=== PATIENT | male | born 1940 | race Caucasian/White ===

== ENCOUNTER 2019-06-09 17:36 | Inpatient (IN) ==
[2019-06-09 18:28] LABS: Bilirubin,Urine Negative (Negative); Blood,Urine Large (Negative); Clarity,Urine Cloudy (Clear); Color,Urine Red (Yellow); Glucose,Urine (UA) 100 mg/dL (Normal); Ketones,Urine Negative (Negative); Leukocyte Esterase,Urine Moderate (Negative); Nitrite,Urine Negative (Negative); Protein,Urine >=300 mg/dL (Neg-Trace); Specific Gravity,Urine 1.019 (1.010-1.025); Urobilinogen,Urine Normal (Normal)
[2019-06-09] MEDS ORDERED: *HR* HYDROmorphone (PF) 1 MG/ML SYRINGE IVP STA (18:31)
[2019-06-09] MEDS ORDERED: Ondansetron 4 MG/2 ML VIAL IVP STA (18:31)
[2019-06-09] MEDS ORDERED: 0.9 % Sodium Chloride 1,000 ML IVC ONE (18:31)
[2019-06-09 20:06] LABS: Basophils % 0.2 %; Eosinophils # 0.3 K/mcL (0.0-0.6); Eosinophils % 2.8 %; Hematocrit 43.9 % (37.5-50.1); Hemoglobin 14.2 g/dL (12.9-16.9); Immature Granulocytes % 0.5 % (0-4); Lymphocytes # 1.1 K/mcL (0.6-4.6); Lymphocytes % 11.7 %; Mean Corpuscular HGB Conc 32.3 g/dL (31.6-35.5); Mean Corpuscular Hemoglobin 28.9 pg (28.0-33.3); Mean Corpuscular Volume 89.2 fL (83.0-100.0); Mean Platelet Volume 11.1 fL (9.4-12.4); Monocytes # 0.9 K/mcL (0.0-1.3); Monocytes % 9.6 %; Platelet Count 172 K/mcL (140-400); Red Blood Count 4.92 M/mcL (4.19-5.50); Red Cell Distribution Width 14.6 % (11.5-14.5); Segmented Neutrophils % 75.2 %; White Blood Count 9.3 K/mcL (4.3-11.1)
[2019-06-09 20:29] LABS: BUN/Creatinine Ratio 12 (6-26); Blood Urea Nitrogen 17 mg/dL (8-23); Calcium 8.7 mg/dL (8.6-10.3); Carbon Dioxide 26 mEq/L (23-29); Chloride 105 mEq/L (98-107); Glucose 115 mg/dL (70-105); Osmolality,Calculated 294 (280-300); Potassium 4.1 mEq/L (3.5-5.1); Sodium 141 mEq/L (136-145); eGFR For African Americans > 60 (> 60); eGFR For Non-African Americans 50 (> 60)
[2019-06-10] MEDS ORDERED: *HR* HYDROmorphone (PF) 1 MG/ML SYRINGE IVP ONE (02:44)
[2019-06-10] MEDS ORDERED: Naloxone 0.4 MG/ML INJ IVP PRN (03:09)
[2019-06-10] MEDS ORDERED: *HR* FentaNYL (PF) 100 MCG/2 ML VIAL IVP PRN (03:14)
[2019-06-10] MEDS ORDERED: 0.9 % Sodium Chloride 1,000 ML IVC SCH (04:00)
[2019-06-10 05:23] LABS: Hematocrit 44.7 % (37.5-50.1); Hemoglobin 14.7 g/dL (12.9-16.9)
[2019-06-10] MEDS: cefTRIAXone 1,000 MG in Water for inj. (sterile) 10 ML IVP SCH (05:47)
[2019-06-10] MEDS: DilTIAZem CD (24hr) 240 MG CAP.ER.24H PO SCH (08:39)
[2019-06-10] MEDS: Finasteride 5 MG TABLET PO SCH (10:33)
[2019-06-10] MEDS: Hyoscyamine SL 0.125 MG TAB.SUBL SL PRN ×2 (10:33→18:11)
[2019-06-11] MEDS ORDERED: *HR* Promethazine 25 MG/ML VIAL IV ONE (01:28)
[2019-06-11] MEDS: Hyoscyamine SL 0.125 MG TAB.SUBL SL PRN ×3 (01:35→21:23)
[2019-06-11] MEDS ORDERED: 0.9 % Sodium Chloride 1,000 ML ONE (01:40)
[2019-06-11] MEDS ORDERED: 0.9 % Sodium Chloride 3,000 ML ONE ×2 (03:33→03:59)
[2019-06-11 06:14] LABS: Basophils % 0.2 %; Eosinophils # 0.2 K/mcL (0.0-0.6); Eosinophils % 1.5 %; Hematocrit 38.6 % (37.5-50.1); Immature Granulocytes % 0.5 % (0-4); Lymphocytes # 1.2 K/mcL (0.6-4.6); Lymphocytes % 11.2 %; Mean Corpuscular HGB Conc 32.4 g/dL (31.6-35.5); Mean Corpuscular Hemoglobin 29.1 pg (28.0-33.3); Mean Platelet Volume 11.5 fL (9.4-12.4); Monocytes # 1.1 K/mcL (0.0-1.3); Platelet Count 178 K/mcL (140-400); Red Blood Count 4.29 M/mcL (4.19-5.50); Red Cell Distribution Width 14.6 % (11.5-14.5); Segmented Neutrophils % 76.6 %; White Blood Count 10.5 K/mcL (4.3-11.1)
[2019-06-11 06:16] LABS: Hemoglobin 12.5 g/dL (12.9-16.9)
[2019-06-11 06:33] LABS: Calcium 8.9 mg/dL (8.6-10.3); Potassium 4.3 mEq/L (3.5-5.1)
[2019-06-11] MEDS ORDERED: 0.9 % Sodium Chloride 4,000 ML ONE (07:18)
[2019-06-11] MEDS: DilTIAZem CD (24hr) 240 MG CAP.ER.24H PO SCH (07:21)
[2019-06-11] MEDS: Finasteride 5 MG TABLET PO SCH (07:21)
[2019-06-11] MEDS: cefTRIAXone 1,000 MG in Water for inj. (sterile) 10 ML IVP SCH (07:22)
[2019-06-11] MEDS: *HR* Labetalol 20 MG/4 ML SYRINGE IVP PRN ×2 (07:25→12:43)
[2019-06-11] MEDS ORDERED: Dextrose Gel 15 GM/37.5 ML TUBE PO PRN ×2 (07:53)
[2019-06-11] MEDS ORDERED: D5% in Water 1,000 ML IVC PRN (07:53)
[2019-06-11] MEDS ORDERED: *HR* Dextrose 50 % in Water (Syg) 50 ML SYRINGE IVP PRN (07:53)
[2019-06-11] MEDS: *HR* Belladonna Alkaloids/Opium 30 MG RECTAL SUPPOSITORY RC PRN (12:44)
[2019-06-11] MEDS: Insulin LISPRO 300 UNITS/3 ML VIAL SQ SCH ×2 (12:56→16:49)
[2019-06-11] MEDS: *HR* Amiodarone 200 MG TABLET PO SCH (16:49)
[2019-06-11] MEDS: traZODone 50 MG TABLET PO SCH (23:24)
[2019-06-12 05:05] LABS: Basophils % 0.2 %; Eosinophils # 0.2 K/mcL (0.0-0.6); Eosinophils % 2.4 %; Hematocrit 32.9 % (37.5-50.1); Hemoglobin 11.2 g/dL (12.9-16.9); Immature Granulocytes % 0.6 % (0-4); Lymphocytes # 1.1 K/mcL (0.6-4.6); Lymphocytes % 11.6 %; Mean Corpuscular Hemoglobin 29.3 pg (28.0-33.3); Mean Corpuscular Volume 86.1 fL (83.0-100.0); Mean Platelet Volume 11.6 fL (9.4-12.4); Monocytes # 1.2 K/mcL (0.0-1.3); Monocytes % 12.2 %; Platelet Count 145 K/mcL (140-400); Red Blood Count 3.82 M/mcL (4.19-5.50); Red Cell Distribution Width 14.9 % (11.5-14.5); White Blood Count 9.7 K/mcL (4.3-11.1)
[2019-06-12 05:24] LABS: Calcium 8.6 mg/dL (8.6-10.3); Potassium 4.1 mEq/L (3.5-5.1)
[2019-06-12] MEDS: Insulin LISPRO 300 UNITS/3 ML VIAL SQ SCH ×3 (09:23→18:16)
[2019-06-12] MEDS: cefTRIAXone 1,000 MG in Water for inj. (sterile) 10 ML IVP SCH (09:23)
[2019-06-12] MEDS: *HR* Amiodarone 200 MG TABLET PO SCH (09:23)
[2019-06-12] MEDS: Finasteride 5 MG TABLET PO SCH (09:23)
[2019-06-12] MEDS: *HR* Belladonna Alkaloids/Opium 30 MG RECTAL SUPPOSITORY RC PRN (09:24)
[2019-06-12] MEDS: DilTIAZem CD (24hr) 240 MG CAP.ER.24H PO SCH (09:24)
[2019-06-12] MEDS: FLUoxetine HCl 10 MG CAPSULE PO SCH (13:55)
[2019-06-12] MEDS: Aspirin 81 MG TAB.CHEW PO SCH (13:55)
[2019-06-12] MEDS: traZODone 50 MG TABLET PO SCH (22:28)
[2019-06-13 02:01] LABS: Basophils % 0.3 %; Eosinophils # 0.4 K/mcL (0.0-0.6); Eosinophils % 3.4 %; Hematocrit 32.4 % (37.5-50.1); Hemoglobin 10.4 g/dL (12.9-16.9); Immature Granulocytes % 0.6 % (0-4); Lymphocytes # 1.4 K/mcL (0.6-4.6); Lymphocytes % 11.9 %; Mean Corpuscular HGB Conc 32.1 g/dL (31.6-35.5); Mean Corpuscular Hemoglobin 28.7 pg (28.0-33.3); Mean Corpuscular Volume 89.3 fL (83.0-100.0); Mean Platelet Volume 11.4 fL (9.4-12.4); Monocytes # 1.4 K/mcL (0.0-1.3); Monocytes % 11.6 %; Neutrophils # 8.4 K/mcL (1.6-8.9); Platelet Count 166 K/mcL (140-400); Red Blood Count 3.63 M/mcL (4.19-5.50); Red Cell Distribution Width 14.6 % (11.5-14.5); Segmented Neutrophils % 72.2 %; White Blood Count 11.6 K/mcL (4.3-11.1)
[2019-06-13 02:21] LABS: Calcium 8.7 mg/dL (8.6-10.3); Potassium 4.2 mEq/L (3.5-5.1)
[2019-06-13 07:47] VITALS: BP 129/74
[2019-06-13] MEDS: Aspirin 81 MG TAB.CHEW PO SCH (08:20)
[2019-06-13] MEDS: *HR* Amiodarone 200 MG TABLET PO SCH (08:21)
[2019-06-13] MEDS: FLUoxetine HCl 10 MG CAPSULE PO SCH (08:21)
[2019-06-13] MEDS: DilTIAZem CD (24hr) 240 MG CAP.ER.24H PO SCH (08:21)
[2019-06-13] MEDS: Finasteride 5 MG TABLET PO SCH (08:21)
[2019-06-13] MEDS: Insulin LISPRO 300 UNITS/3 ML VIAL SQ SCH (08:34)
== END 2019-06-13 11:50 | disposition home or self-care (01) | DRG 696 ==
LOC: EMEROOARM 17:36 → 3BNU 17:36 → SUATTDRO 06-10 02:40 → 3BNU 06-10 03:32
PROVIDERS: ADMIT Family Medicine; ATTEND Internal Medicine